=== PATIENT | female | born 1995 | race African-American/Black ===

== ENCOUNTER 2016-07-28 00:46 | Emergency (ER) | payer OTHER ==
[~2016-07-28] VITALS: Ht 162.6 cm; Wt 100.0 kg
[~2016-07-28 00:46] MED LIST: AMOX875T PO; DICL50TA3 PO
[2016-07-28 00:59] VITALS: BP 168/90; PULSE 100; RESP 22; TEMP 98.3; O2SAT 98
--- NOTE | 2016-07-28 01:20 | PD ---
HPI Chief Complaint: Alcohol/Drug Intoxication Time Seen by Provider: 01:16 Travel History International Travel<30 days: No Contact w/Intl Traveler<30days: No Traveled to known affect area: No History of Present Illness HPI 20-year-old black female presents to emergency department by PD under a [place] act due to inability to care for herself due to substance abuse. The patient here is very vague. She will not admit to alcohol or drugs. She does appear to be under the influence. She denies any injuries. She denies suicidal and homicidal ideation. She merely states that she would like to go home. She has agreed to give us her mother's phone number to call. She denies any medical clearance at this time. [facility] Past Medical History Medical History: Denies Significant Hx Diminished Hearing: No ?: Unknown : 0 Para: 0 Miscarriage: 0 : 0 Past Surgical History Joint Replacement: No Pacemaker: No Other Surgery: Yes (finger surgery) Social History Alcohol Use: Yes Tobacco Use: Yes (4 per day) Substance Use: No Allergies-Medications (Allergen,Severity, Reaction): Coded Allergies: No Known Allergies (Unverified , 07/28/16) Reported Meds & Prescriptions Reported Meds & Active Scripts Active No Active Prescriptions or Reported Medications Review of Systems ROS Limitations: Intoxication Physical Exam Narrative GENERAL: Well-nourished, well-developed patient. SKIN: Warm and dry. HEAD: Normocephalic and atraumatic. EYES: No scleral icterus. No injection or drainage. ENT: No nasal drainage noted. Mucous membranes pink. Airway patent. NECK: Supple, trachea midline. Moves head freely without obvious discomfort. CARDIOVASCULAR: Regular rate and rhythm without murmurs, gallops, or rubs. RESPIRATORY: Breath sounds equal bilaterally. No accessory muscle use. GASTROINTESTINAL: Abdomen soft, non-tender, nondistended. EXTREMITIES: No cyanosis or edema. BACK: Nontender without obvious deformity. No CVA tenderness. NEURO: Patient is alert and oriented. no sensorimotor deficits. Nonfocal. Normal speech. PSYCH: No delusions. No auditory or visual hallucinations. Data Data Last Documented VS Vital Signs Date Time Temp Pulse Resp B/P Pulse Ox O2 Delivery O2 Flow Rate FiO2 07/28/16 00:59 98.3 100 22 168/90 98 MDM Medical Decision Making Medical Screen Exam Complete: Yes Emergency Medical Condition: Yes Medical Record Reviewed: Yes Differential Diagnosis Differential diagnoses: Alcohol intoxication, substance abuse, electrolyte abnormality, malingering Narrative Course The patient is acutely intoxicated. She is under the influence of drugs and/or alcohol. She is uncooperative with staff. She is given her mother's name is a supervisor contact lens we have contacted. She has agreed to come product picker the patient. The mother has verbally agreed to take the patient will be responsible for this intoxicated individual. She is aware that she is not allowed to operate any heavy machinery or operating vehicle. Mother verbally states understanding. The patient is medically cleared and her Jody act as lifted and the patient is discharged to her mother. This is intoxication Diagnosis Primary Impression: Intoxication by drug Qualified Code: F19.920 - Intoxication by drug, uncomplicated Patient Instructions: General Instructions Additional Instructions: Rest. Increase fluids. Avoid alcohol. Avoid illegal substances. Follow-up with [facility] for detox. Do not operate a car or any heavy machinery under the influence of alcohol or drugs. Follow-up with a medical doctor this week. Return to the ER for emergencies Med/Other Pt SpecificInfo: No Meds Exist/No RX given Scripts No Active Prescriptions or Reported Meds Disposition: 01 DISCHARGE HOME Condition: Stable Paul Rizvi Jul 28, 2016 01:20
== END 2016-07-28 02:08 | disposition home or self-care (01) ==
LOC: NEPD 00:46
DX: F19.920 Other psychoactive substance use, unspecified with intoxication, uncomplicated (principal); Z72.0 Tobacco use
CPT/HCPCS: 99284